=== PATIENT | female | born 1940 | race Caucasian/White ===

== ENCOUNTER 2020-12-22 19:04 | Day surgery (SDCO) | payer OTHER ==
[~2020-12-22 19:04] MED LIST: COZAAR 25MG TAB25 MG PO; IBU400 MG PO
[2020-12-22 19:44] LABS: BASOPHIL 0.4 % (0-2); EOSINOPHIL 1.3 % (0-7); HGB 14.7 g/dl (12.5-16.0); LYMPHOCYTE 28.9 % (15-48); MCH 27.8 pg (25.0-31.0); MCV 87.1 fL (78.0-100.0); MONOCYTE 8.2 % (0-12); MPV 10.3 fL (6.0-9.5); NEUTROPHIL 60.8 % (41-80); NRBC 0; PLT 200 K/uL (150-400); RBC 5.28 M/uL (4.20-5.40); RDW 16.1 % (11.5-14.0); WBC 10.9 K/uL (4.0-10.5)
[2020-12-22 19:47] LABS: INR 1.03 (0.9-1.2); PROTHROMBIN TIME 12.8 SECONDS (11.4-13.6); PTT 25.8 SECONDS (22.2-34.7)
[2020-12-22 19:56] LABS: ALBUMIN 3.8 g/dL (3.4-5.0); BILIRUBIN - TOTAL 0.3 mg/dL (0.2-1.0); BUN/CREAT RATIO (CALC) 19.3 RATIO; CREATININE 1.14 mg/dL (0.51-0.95); GLOBULIN (CALCULATION) 3.8 g/dL; POTASSIUM 4.1 mmol/L (3.5-5.1); TOTAL PROTEIN 7.6 g/dL (6.4-8.2)
[2020-12-23] MEDS ORDERED: ELIQUIS5 MG PO ×2 (03:23→15:47)
[2020-12-23 06:18] LABS: BASOPHIL 0.5 % (0-2); EOSINOPHIL 0.7 % (0-7); HCT 43.2 % (37.0-47.0); HGB 13.6 g/dl (12.5-16.0); LYMPHOCYTE 21.4 % (15-48); MCH 27.8 pg (25.0-31.0); MCHC 31.5 g/dL (32.0-36.0); MCV 88.3 fL (78.0-100.0); MONOCYTE 8.1 % (0-12); MPV 10.3 fL (6.0-9.5); NEUTROPHIL 68.8 % (41-80); NRBC 0; PLT 166 K/uL (150-400); RBC 4.89 M/uL (4.20-5.40); RDW 16.1 % (11.5-14.0); WBC 10.2 K/uL (4.0-10.5)
[2020-12-23 06:44] LABS: ALBUMIN 3.4 g/dL (3.4-5.0); BILIRUBIN - TOTAL 0.4 mg/dL (0.2-1.0); CREATININE 0.9 mg/dL (0.51-0.95); GLOBULIN (CALCULATION) 2.9 g/dL; POTASSIUM 4.3 mmol/L (3.5-5.1); TOTAL PROTEIN 6.3 g/dL (6.4-8.2)
[2020-12-23] MEDS ORDERED: COZAAR50 MG PO (15:59)
[2020-12-23] MEDS ORDERED: LOPRESSOR25 MG PO (15:59)
== END 2020-12-23 17:00 | disposition home or self-care (01) ==
LOC: FER 19:04 → FTCU 12-23 00:36
PROVIDERS: Emergency Medicine Emergency Medical Services; Nurse Practitioner; ADMIT Allergy & Immunology Allergy
DX: I26.99 Other pulmonary embolism without acute cor pulmonale (principal); I82.411 Acute embolism and thrombosis of right femoral vein; I82.451 Acute embolism and thrombosis of right peroneal vein; I10 Essential (primary) hypertension; Z20.822 Contact with and (suspected) exposure to COVID-19; Z90.49 Acquired absence of other specified parts of digestive tract; Z98.890 Other specified postprocedural states; Z88.6 Allergy status to analgesic agent; Z79.01 Long term (current) use of anticoagulants; Z79.899 Other long term (current) drug therapy
CPT/HCPCS: 36415; 71045; 71275; 80053; 83036; 84484; 85025; 85379; 85610; 85730; 93005; 93970; 94760; 96372; G0378; J1650; J7030; Q9967; U0002